=== PATIENT | male | born 2000 | race Caucasian/White ===

== ENCOUNTER 2024-07-10 14:48 | Emergency (ER) | payer BC, SELFPAY ==
[2024-07-10 14:54] VITALS: BP 120/78; PULSE 82; RESP 16; TEMP 36.4; O2SAT 97
--- NOTE | 2024-07-10 15:03 | PC.NURSE ---
Meal tray ordered for pt.
--- NOTE | 2024-07-10 15:08 | ED.PSYCH ---
HPI - Psych General Chief Complaint: Psychiatric Symptoms Stated Complaint: auditory hallucinations History of Present Illness HPI Narrative: 23-year-old male with history of schizophrenia presenting to the emergency department with EMS for concerns of medication noncompliance and auditory/visual hallucinations. Patient is noncooperative and verbally aggressive. Occasionally he gets selective mutism and will not answer my questions but occasionally will also nod his head yes or no. Patient will not talk to me or respond to me during my initial assessment but occasionally will verbalized with some of the nursing staff. Patient appears to be responding to internal stimuli making review of systems and interviewing limited. Related Data Allergies Allergy/AdvReac Type Severity Reaction Status Date / Time Unable to Assess Allergy Verified 07/10/24 16:48 Review of Systems Review of Systems: ROS unobtainable: Yes unobtainable due to medical condition [facility] Social History Social History Substance use type: unknown Exam Narrative: GENERAL: Not any acute distress, appears to be responding to internal stimuli, selectively mute but awake and occasionally nods yes or no and occasionally states words HEAD: [Normocephalic, atraumatic.] EYES: [PERRLA and EOMI.] ENT: Nares clear, no rhinorrhea or epistaxis. Mucous membranes moist. NECK: Supple. CHEST: [Clear to auscultation. No respiratory distress.] HEART: [Regular rate and rhythm]. No murmur heard. [Normal peripheral pulses.] ABDOMEN: [Soft, nondistended], [nontender], [No rigidity or guarding] EXTREMITIES: Normal range of motion. [No edema.] SKIN: Warm, dry, no rash. NEURO: [No focal deficits]. Awake and alert, Moving all extremities PSYCH: Negative symptoms and features in his mood and affect, selective mutism, appears to responding to internal stimuli Course Vital Signs Vital signs: Vital Signs Temperature 36.4 C 07/10/24 14:54 Pulse Rate 82 07/10/24 14:54 Respiratory Rate 16 07/10/24 14:54 Blood Pressure 120/78 07/10/24 14:54 Pulse Oximetry 97 07/10/24 14:54 Oxygen Delivery Room Air 07/10/24 14:54 Temperature 36.4 C 07/10/24 14:54 Pulse Rate 82 07/10/24 14:54 Respiratory Rate 16 07/10/24 14:54 Blood Pressure 120/78 07/10/24 14:54 Pulse Oximetry 97 07/10/24 14:54 Oxygen Delivery Room Air 07/10/24 14:54 MDM - Psych MDM Narrative Medical decision making narrative: 23-year-old male with history of schizophrenia presenting to the emergency room with EMS for reported auditory and visual hallucinations and decompensated psychosis. Patient apparently was verbally aggressive with EMS but presently cooperative. He is selectively being mute and not answering my questions but occasionally nodding yes or no and occasionally stating words. Has very convincing negative symptoms of schizophrenia on his examination. Normal vital signs. Psychiatric clearance laboratory studies will be ordered and orders for p.r.n. medications including Versed and Haldol intramuscular were given in case he needs them for agitation and noncompliance with treatment. Elopement precautions ordered. Workup shows no leukocytosis or anemia. Normal platelet count. Chemistry panel is unremarkable. Normal renal function, normal hepatic function, normal glucose. Normal TSH. Urine with no signs of infection. UDS positive for cannabinoids otherwise negative. Negative alcohol level. Negative COVID test. Patient is medically cleared for psychiatric evaluation and final disposition per their recommendations. Psychiatry has evaluated the patient and recommends placement. Patient has signed voluntary forms and will be placed for continued evaluation and treatment of his psychiatric disorder. Medical Records Attestation: I reviewed the patient's medical records. Lab Data Attestation: I reviewed the patient's lab results. 07/10/24 15:45 07/10/24 15:45 Labs: Lab Results 07/10/24 Range/Units 15:45 WBC 6.8 (4.5-10.0) K/mm3 RBC 5.00 (4.6-6.20) M/mm3 Hgb 14.2 (14.0-18.0) g/dL Hct 44.4 (42.0-52.0) % MCV 88.8 (80-100) fl MCH 28.4 (26-34) pg MCHC 32.0 (32-36) g/dl RDW 12.3 (11.5-14.5) % Plt Count 254 (150-375) k/mm3 MPV 10.4 (7.4-10.4) fl Immature Gran % (Auto) 0.3 (0-0.5) % Neut % (Auto) 59.7 (45.5-73.1) % Lymph % (Auto) 25.6 (18.3-44.2) % Meagher % (Auto) 10.1 H (2.6-8.5) % Eos % (Auto) 3.4 (0-4.4) % Baso % (Auto) 0.9 (0.2-1.2) % Lymph # (Auto) 1.74 (0.9-3.2) K/mm3 Meagher # (Auto) 0.7 H (0.1-0.6) K/mm3 Eos # (Auto) 0.2 (0-0.3) K/mm3 Baso # (Auto) 0.1 (0.0-0.1) K/mm3 Abs Immat Gran (auto) 0.02 (0.00-0.031) K/mm3 Absolute Neuts (auto) 4.1 (1.3-6.7) K/mm3 Absolute Nucleated RBC 0.000 (0.0-0.012) K/mm3 Nucleated RBC % 0.0 (0.0-0.2) % Sodium 139 (137-145) mmol/L Potassium 4.4 (3.4-5.0) mmol/L Chloride 104 (98-107) mmol/L Carbon Dioxide 28 (22-30) mmol/L Anion Gap 7 (4-12) mmol/L BUN 14 (9-20) mg/dL Creatinine 0.97 (0.7-1.3) mg/dL Estim Creat Clear Calc Not Reportable Estimated GFR > 60 (59 - ) Glucose 90 (65-110) mg/dL Calcium 9.6 (8.4-10.2) mg/dL Total Bilirubin 0.3 (0.2-1.3) mg/dL AST 34 (17-59) U/L ALT 25 (6-50) U/L Alkaline Phosphatase 76 (38-126) U/L Total Protein 8.0 (6.3-8.2) g/dL Albumin 4.5 (3.5-5.1) g/dL TSH (Reflex) 0.870 (0.465-4.68) uIU/mL Urine Color Yellow (Yellow) Urine Appearance Clear (Clear) Urine pH 5.5 (5.0-9.0) Ur Specific Preston 1.021 (1.001-1.035) Urine Protein Trace (Negative) mg/dL Urine Glucose (UA) Negative (Negative) mg/dL Urine Ketones Trace H (Negative) mg/dL Ur Blood (Man) Negative (Negative) Urine Nitrate Negative (Negative) Urine Bilirubin Negative (Negative) Urine Urobilinogen 0.2 (<2.0) mg/dL Add Ur Microanalysis Reviewed Leukocyte Esterase Rfl Negative (Negative) ZACH/UL Urine RBC 0-2 (0-2) /hpf Urine WBC 0-5 (0-3) /hpf Ur Squamous Epith Cells None seen (Few) /hpf Urine Bacteria None seen /hpf Urine Casts 11-20 Hyaline Casts Present (None) /lpf Urine Opiates Screen Negative (Negative) Urine Methadone Screen Negative (Negative) Ur Barbiturates Screen Negative (Negative) Ur Phencyclidine Scrn Negative (Negative) Ur Amphetamine Screen Negative (Negative) U Benzodiazepines Scrn Negative (Negative) Urine Cocaine Screen Negative (Negative) U Cannabinoids Screen Positive A (Negative) Ethyl Alcohol < 10 (<10) mg/dL SARS-CoV-2 RNA (RT-PCR) Negative (Negative) Discharge Plan Discharge Clinical Impression: Psychosis Patient Disposition: Psychiatric Hosp Condition: Stable Patient Language: Citizen Of [place] Follow-up/Referrals: UNKNOWN,DOCTOR [Primary Care Provider] -
--- OUTSIDE RECORDS SUMMARY | 2024-07-10 15:21 | XMS_ITS | Patient Health Record ---
Author Organization [facility] Address [address] [place] [address] Care Team Providers Care Profile Saw Setup Operator Name Role Phone Loraine Montiel Primary Care Provider [phone] Marga Alonso Unavailable Allergies No Known Allergies Results Component Value Reference Range Notes CBC With Differential/Platel et* (Not yet reviewed by provider) Interpretation: Performing Lab:[facility], [address] [place] [address], [place], Phone - [phone], Director - Nini Notes/Report: WBC 7.8 3.4-10.8 x10E3/uL RBC 5.60 4.14-5.80 x10E6/uL Hemoglobin 15.9 13.0-17.7 g/dL Hematocrit 48.5 37.5-51.0 % MCV 87 79-97 fL MCH 28.4 26.6-33.0 pg MCHC 32.8 31.5-35.7 g/dL RDW 12.7 11.6-15.4 % Platelets 249 150-450 x10E3/uL Neutrophils 68 Not Estab. % Lymphs 20 Not Estab. % Monocytes 9 Not Estab. % Eos 2 Not Estab. % Basos 1 Not Estab. % Neutrophils (Absolute) 5.3 1.4-7.0 x10E3/uL Lymphs (Absolute) 1.6 0.7-3.1 x10E3/uL Monocytes(Absolute) 0.7 0.1-0.9 x10E3/uL Eos (Absolute) 0.2 0.0-0.4 x10E3/uL Baso (Absolute) 0.1 0.0-0.2 x10E3/uL Immature Granulocytes 0 Not Estab. % Immature Grans (Abs) 0.0 0.0-0.1 x10E3/uL CMP 14 Comprehensive Metabol ic Panel* (Not yet reviewed by provider) Interpretation: Performing Lab:[facility] [address] [facility], Phone - [phone], Director - [facility] Notes/Report: Glucose 61 70-99 mg/dL BUN 15 6-20 mg/dL Creatinine 0.96 0.76-1.27 mg/dL eGFR 113 >59 mL/min/1.73 BUN/Creatinine Ratio 16 9-20 Sodium 141 134-144 mmol/L Potassium 4.4 3.5-5.2 mmol/L Chloride 103 96-106 mmol/L Carbon Dioxide, Total 21 20-29 mmol/L Calcium 9.7 8.7-10.2 mg/dL Protein, Total 7.6 6.0-8.5 g/dL Albumin 4.7 4.3-5.2 g/dL Globulin, Total 2.9 1.5-4.5 g/dL Bilirubin, Total 0.3 0.0-1.2 mg/dL Alkaline Phosphatase 96 44-121 IU/L AST (SGOT) 14 0-40 IU/L ALT (SGPT) 13 0-44 IU/L HIV Screen *HIV 1, 2 Ab, p24 Ag ([id number]) (Not yet reviewed by provider) Interpretation: Performing Lab:[facility] [address] [facility], Phone - [phone], Director - [facility] Notes/Report: HIV Ab/p24 Ag Screen Non Reactive Non Reactive HIV-1/HIV-2 antibodies and HIV-1 p24 antigen were NOT detected. There is no laboratory evidence of HIV infection. HIV Negative 12 Panel Urine Drug Screen Reviewed date:07/06/2024 11:59:35 AM Interpretation: Performing Lab: Notes/Report: THC pos SONIA neg MOP (OPI) neg AMP neg MET neg BAR neg BZO neg MDMA neg MTD neg OXY neg PCP neg BUP neg QuantiFERON-TB Gold Plus ([id number]) (Not yet reviewed by provider) Interpretation: Performing [facility] [address] [facility], Phone - [phone], Director - [facility] Notes/Report: QuantiFERON Incubation Incubation performed. QuantiFERON-TB Gold Plus Negative Negative No response to M tuberculosis antigens detected. Infection with M tuberculosis is unlikely, but high risk individuals should be considered for additional testing (ATS/IDSA/CDC Clinical Practice Guidelines, 2017). The reference range is an Antigen minus Nil result of <0.35 IU/mL. Chemiluminescence immunoassay methodology QuantiFERON Criteria QuantiFERON-TB Gold Plus is a qualitative indirect test for M tuberculosis infection (including disease) and is intended for use in conjunction with risk assessment, radiography, and other medical and diagnostic evaluations. The QuantiFERON-TB Gold Plus result is determined by subtracting the Nil value from either TB antigen (Ag) value. The Mitogen tube serves as a control for the test. QuantiFERON TB1 Ag Value 0.06 QuantiFERON TB2 Ag Value 0.06 QuantiFERON Nil Value 0.08 QuantiFERON Mitogen Value >10.00 Breathalyzer Reviewed date:07/06/2024 11:58:38 AM Interpretation:0.000 Performing Lab: Notes/Report: 0.000 TAYLOR 0.000 Reason For Referral No Information Medications Medication SIG (Take, Route, Fr equency, Duration) Notes Start Date End Date Status Melatonin 5 MG 1 tablet at bedtime as needed Orally Once a day for 30 days 07/06/2024 Ac tive Multi Vitamin - 1 tablet Orally Once a day for 30 days 07/06/2024 Active hydrOXYzine HCl 25 MG 1-2 capsules Orall y every 4 hours as needed for anxiety, agitation, or inability to sleep. Do not given within 4 hours of diphenhydramine for 5 days 07/06/2024 Active Social History Tobacco Use: Social History Observation Description Date Details (start date - stop date) Never Smoker NA - NA Sex Assigned At : Social History Observation Description Sex Assigned At Male PRAPARE Question Answer Notes Date Completed/Updated: 07/06/2024 What is your current housing situation? I have h ousing Are you worried about losing your housing? No What is the highest level of school that you have finished? Less than a high school degree What is your current work situation? Unemployed and seeking work In the past year, have you o r any family members you live with been unable to get any of the following when it was really needed? Check all that apply Phone Has lack of transportation k ept you from medical appointments, meetings, work or from getting things needed for daily living? No How often do you see or talk to people that you care about and feel close to? (For example: talking to friends on the phone, visiting friends or family, going to quaker or club meetings) Less than once a week How stressed are you? Stress is when someone feels tense, nervous, anxious, or can\t sleep at night because their mind is troubled A little bit In the past year have you sp ent more than 2 nights in a row in a half-way, jail, longterm center, or juvenile correctional facility? Yes What was your release date? 07/06/2024 Are you a refugee? I choose not to answer this q uestion What country are you from? I choose not to answe r this question Do you feel physically and e motionally safe where you currently live? No In the past year, have you b een afraid of your partner or ex-partner? No PRAPARE Score: 11 Enabling Services Provided? Yes Please specify Case Management Asse ssment First Visit Tobacco Control (Standard) Question Answer Notes Tobacco use: Nonsmoker Problems Problem Type SNOMED Code ICD Code Onset Dates Problem Status W/U Status Risk Notes Problem Adult general medical exam (Z00.) Active confirmed Vital Signs Heart Rate 89 /min 07/06/2024 Respiratory Rate 16 /min 07/06/2024 Blood pressure diastolic 70 mm Hg 07/06/2024 Oximetry 98 % 07/06/2024 Height 68 in 07/06/2024 Blood pressure systolic 128 mm Hg 07/06/2024 Weight 147.6 lbs 07/06/2024 BMI 22.44 kg/m2 07/06/2024 Encounters Encounter Location Date Provider Diagnosis [facility] [address] [place] [address] 07/06/2024 Marga Alonso [place] [address] [place] [address] 07/06/2024 Loraine Montiel Adult general medical exam Z00.00 Assessments Encounter Date Diagnosis (ICD Code) Assessment Notes Treatment Notes Treatment Clinical Notes Section Notes 07/06/2024 Adult general medical exam (ICD-10 - Z00.00) Admit to the Mental Health/Crisis Residential Unit and initiate standing/protocol orders: The following PRN medications may be self-administered by patients under the supervision of approved staff or administered by nursing staff: Ibuprofen 200mg, 2-4 tablets by mouth (with food) every 6 hours as needed for pain (unless on lithium). (NOTE: Ibuprofen and acetaminophen may be given together, but alternating is recommended for continuous pain relief. Guaifenesin 400 mg, 1 tablet by mouth every four hours as needed for cough and chest congestion (take with large glass of water). Loratadine 10 mg, 1 tablet by mouth daily as needed for allergies, watery itchy eyes, or sinus drainage. Throat Lozenges, up to 4 tablets by mouth every three to four hours as needed for sore throat. Antacid tablets, 1-2 tablets by mouth every one to two hours as needed for indigestion or heart burn. If the client prefers liquid, could use: Liquid Antacid : 1 ounce by mouth up to four times daily as needed for indigestion or heartburn Omeprazole 20mg, 1 capsule by mouth once daily for 14 days for frequent heartburn (frequent heartburn is more than 2 episodes per week). Do not exceed 14 days. Do not give to client already taking a proton-pump inhibitor: esomeprazole (Nexium), lansoprazole (Prevacid), pantoprazole (Protonix), rabeprazole (Aciphex), dexlansoprazole (Dexilant) Zofran ODT disintegrating (under the tongue) 4 mg, 1-2 tablets every 8 hours as needed for nausea/vomiting. Milk of Magnesia (MOM): 1 ounce (30 milliliters) by mouth every day as needed for constipation. OR Miralax: Stir and fully dissolve 17 grams (1 packet or 1 capful to measured line) in any 4 to 8 ounces of beverage then drink once daily for constipation. Do not use for more than 7 days. OR Docusate 100 mg, 1 capsule twice daily as needed for constipation Hydrocortisone 1% Cream, apply topically (to the skin) to the affected area up to three times daily as needed for itching or inflammation (avoid eyes and genitals). 2% Antifungal Cream, apply topically (to the skin) as directed as needed to affected areas for athlete's foot or jock itch. Triple Antibiotic Ointment, apply topically (to the skin) up to three times daily as needed for minor cuts and scrapes. Carmex or Chapstick, apply topically (to the skin) as needed for chapped lips and skin. Orajel, apply to affected areas as needed for mouth or tooth pain. Lubricating Eye Drops, instill 1-2 drops to the affected eye(s) as needed for dry/irritated eye(s). Hemorrhoid medications, apply to affected area according to directions as needed for hemorrhoid discomfort and itch. Nix (Permethrin 1%) cream 2 ounces, apply topically (to the skin) as directed as needed for head lice. Sunscreen 30 SPF, Apply to exposed skin prior to exposure to sun. The following PRN medications must be approved by nursing staff before self-administration by patients: Diphenhydramine 25 mg, 2 tablets by mouth every 4 hours as needed for allergic reaction or itchy rash. Caution: Do not use hydroxyzine within 4 hours of diphenhydramine and vice versa. Loperamide 2 mg capsules, may give two capsules by mouth for the initial dose, followed by one capsule up to 3 times a day as needed for diarrhea. Acetaminophen 500 mg, 1 - 2 tablets by mouth every six hours as needed for pain. (NOTE: Ibuprofen and acetaminophen may be given together, but alternating is recommended for continuous pain relief). Oxygen-May administer oxygen 2L/min via nasal cannula if O2 saturation is less than 92%, AND client complains of shortness of breath. Target O2 saturation is 94-98%. Caution: Remember too much oxygen can be detrimental to a client with COPD. Oxygen is a drug and should be delivered by trained staff only. Nurses may remove superficial splinters and sutures from skin lacerations. May apply gauze or bandages to any weeping wounds. Contact nursing if there is pus, a foul odor, increased pain/redness/swelli ng, or if soaking through bandages. 07/06/2024 Other Clinician met w ith client to assess needs for residential services. Clinician gathered information regarding historical presentation of mental health and substance use symptoms including withdrawal, HIV Risk assessment, psychiatric hospitalization history and presenting concern. Clinician conducted PHQ9 and CSSRS assessments as well as social drivers of health screening for the purposes of identifying additional service needs. Plan Of Treatment Future Test Test Name Order Date HIV Screen *HIV 1, 2 Ab, p24 Ag ([id number]) 07/06/2024 CBC With Differential/Platelet* 07/07/19 25 CMP 14 Comprehensive Metabolic Panel* QuantiFERON-TB Gold Plus ([id number]) 2024 Insurance Providers Payer Name Payer Address Payer Phone Subscriber Number Group Number Insured Name Patient Relationship to Insured Coverage Start Date Coverage End Date [address] [phone] [id number] Jake Silva Self - patient is the insured 5
--- OUTSIDE RECORDS SUMMARY | 2024-07-10 15:21 | XMS_ITS ---
Author Organization [facility] Address [address] [place] [address] Care Team Providers Care Conservation Science Officer Name Role Phone Loraine Montiel Primary Care Provider [phone] Marga Alonso Unavailable [phone] REASON FOR VISIT CRU aT Social History Tobacco Use: Social History Observation [...] phone, visiting friends or family, going to amish or club meetings) Less than once a week How stressed are you? Stress is when someone feels tense, nervous, anxious, or can\t sleep at night because their mind is troubled A little bit In the past year have you sp ent more than 2 nights in a row in a residential, long term, care home center, or juvenile correctional facility? Yes What [...] (Standard) Question Answer Notes Tobacco use: Nonsmoker Encounters Encounter Location Date Provider Diagnosis [facility] [address], [place] [address] 07/06/2024 Marga Alonso Assessments Encounter Date Diagnosis (ICD Code) Assessment Notes Treatment Notes Treatment Clinical Notes Section Notes 07/06/2024 Other Clinician met w ith client to assess needs for residential services. Clinician gathered information regarding historical presentation of mental health and substance use symptoms including withdrawal, HIV Risk assessment, psychiatric hospitalization history and presenting concern. Clinician conducted PHQ9 and CSSRS assessments as well as social drivers of health screening for the purposes of identifying additional service needs. Plan Of Treatment Treatment Notes Assessment Notes Other Clinician met with krystyna acosta to assess needs for residential services. Clinician gathered information regarding historical presentation of mental health and substance use symptoms including withdrawal, HIV Risk assessment, psychiatric hospitalization history and presenting concern. Clinician conducted PHQ9 and CSSRS assessments as well as social drivers of health screening for the purposes of identifying additional service needs. Progress Notes * Jake VELARDEDOB: 0 (23 yo M)Acc No.[id number]:07/06/2024 UNLOCKED PROGRESS NOTE Patient: Jake ANGULO Provider: Jose Alonso :2000 A ge:23 Y S ex:Male Date:07/06/2024 Address:[address] [place], [place] [id number] Pcp:Loraine Montiel Subjective: * Chief Complaints: * 1 . CRU aT. * HPI: D epression Screening: PHQ-9 L ittle interest or pleasure in doing things N ot at all, F eeling down, depressed, or hopeless N early every day, T rouble falling or staying asleep, or sleeping too much S everal days, F eeling tired or having little energy Several days, P oor appetite or overeating M ore than half the days, F eeling bad about yourself or that you are a failure, or have let yourself or your family down S everal days, Trouble concentrating on things, such as reading the newspaper or watching television S ever, M oving or speaking so slowly that other people could have noticed; or the opposite, being so fidgety or restless that you have been moving around a lot more than usual S everal ,?Thoughts that you would be better off or of hurting yourself in some way N ot at all, Total Score 1 0, I nterpretation M oderate Depression. I ntervention D epression Screening Findings P ositive, F ollow-Up for Depression P rachele is admitted to a [facility] unit where their mental health is monitored - unit nursing staff have access to this encounter note. S creening: [place] Suicide Severity Rating Scale (LF) D o you want to initiate with S creener form, I nterpretation: L ow Risk, 6 . Suicide Behavior Question: Have you ever done anything,started to do anything, or prepared to end your life? N o, 2. Suicidal Thoughts: Have you actually had any thoughts of killing yourself? N o, 1 . Wish to be : Have you wished you were or wished you could go to sleep and not wake up? N o. C SSRS Interpretation and Follow Up Plan: CSSRS Interpretation and Follow Up Plan C SSRS Screen documented using SF Y es, R isk Disposition from L ow - No Follow Up Plan Required, F ollow Up Plan N o Follow Up Plan required at this time., T imeframe of Screening T micheal.? P sychiatric Assessment - Current Symptoms: Primary concern today A dmitting today for MH Stabilization program unsure of goals at this point. O verview of Mental Health Symptoms M H dx - denies any at this time. H istory of Psychiatric Hospitalizations d enies at this time. H istory of Psychiatric and Behavioral Health Treatment D enies any past BH treatment at this time.? S ubstance Use: Current Use Patterns x . S ubstance of Choice x .?History of substance use D enies any substance use hx at this time. S moking: Denies W eed: Denies at this time A lcohol: Denies at this time. . H x of Withdrawal x . H IV Risk Assessment Screening: Sexual Risk Behaviors: 1 . Are you sexually active? (If no skip question 2) N o. H IV/AIDS/Hepatitis Risk Assessment 1 . Have you ever shared needles or equipment for injecting drugs, tattoos, or piercings with others? N o, 2 . Have you ever had unprotected sex with someone you think might be infected with an STI or HIV (such as someone who injected drugs, who was diagnoed with or treated for an STI or hepatitis, has had mulitiple sex partners, or who has exchanged sex for drugs or money)? N o, 3 . Have you ever had unprotected vaginal or anal intercourse with more than 1 sex partner? N o, 4 . Have you ever been diagnosed with or treated for an STI, hepatitis, or tuberculosis? N o, 5 . Have you ever had an unexplained fever or illness of unknown cause (not including the common cold)? N o, 6 . Have you ever been told that you have an infection related to a weak immune system ? N o, 7 . If YES to any of the above (including sexual risk behaviors), have you been tested in the past year for HIV/AIDS and/or Hepatitis C? L ow Risk: The patient did not answer yes to any of the screening questions. . Required for Residential Admits. a TBC For Mental Health Services: Who Is Your Primary Care Provider? D o You Have A PCP? N o Denies desire to see any at this time, D ate of last physical exam 0 -2024. D o You Have A Psychiatric Provider? D o You Have A Psychiatric Provider? N o Not interested at this time. D o You Have Any Other Professional Supports? D o You Have Any Other Professional Supports? Y es Denies any at this time. C onsent Forms Completed During Appointment C onsent Forms Completed N one Needed at this time. A ssessment of Social Determinants of Health::: Has A PRAPARE Been Completed In The Past Year? H as a PRAPARE Been Completed In The Past Year? Y es, W as It Completed Today Using [employer]? N o.? * Medical History: * Social History: S ocial Determinants: Subha KERN D ate Completed/Updated: 0 07/06/2024, W hat is your current housing situation? I have housing, A re you worried about losing your housing? N o, W hat is the highest level of school that you have finished? L ess than a high school degree, W hat is your current work situation? U nemployed and seeking work, I n the past year, have you or any family members you live with been unable to get any of the following when it was really needed? Check all that apply P oswaldo, H as lack of transportation kept you from medical appointments, meetings, work or from getting things needed for daily living? N o, H ow often do you see or talk to people that you care about and feel close to? (For example: talking to friends on the phone, visiting friends or family, going to amish or club meetings) L ess than once a week, H ow stressed are you? Stress is when someone feels tense, nervous, anxious, or can\t sleep at night because their mind is troubled A little bit, I n the past year have you spent more than 2 nights in a row in a residential, long term, care home center, or juvenile correctional facility? Y es, W hat was your release date? 0 07/06/2024, A re you a refugee? I choose not to answer this question, W hat country are you from? I choose not to answer this question, D o you feel physically and emotionally safe where you currently live? N o, I n the past year, have you been afraid of your partner or ex-partner? N o, P ERLIN Score: 1 1, E nabling Services Provided? Y es, P tatianna specify C ase Management Assessment First Visit. T obacco Use: T obacco Control (Standard) T obacco use: N onsmoker. Objective: * Vitals: * Examination: M ental Status Exam: ATTENTION AND CONCENTRATION x . APPEARANCE x . ATTITUDE AND BEHAVIOR x . EYE CONTACT x . AFFECT x . MOOD x . INSIGHT x . JUDGMENT x . Assessment: Plan: * Treatment: * Procedure Codes: 9 0791 PSYCH DIAGNOSTIC EVALUATION, Modifiers: AJ , T1016 Case management, CHS08 [facility] Service, CHS11 Insurance Application Assistance, CHS12 Housing Assistance, CHS13 Referring to Fruit Grading Supervisor * * Electronic signature of Nona chanel Celeste on 07/10/2024 at 03:21 PM CDT Sign off status: Pending * Provider: Jose Alonso Date: 0 07/06/2024 Generated for Jose L mejia/Zita/Shasta on: 0 07/10/2024 03:21 PM CDT History and Physical Notes * HPI (History of Present Illness) Category Sub-Category Detail Notes Category Not es Depression Screening PHQ-9 Little inte rest or pleasure in doing things: Not at all Feeling down, depressed, or hopeless: Ne megan every day Trouble falling or staying asleep, or sl eeping too much: Several days Feeling tired or having little energy: S everal days Poor appetite or overeating: More than h iggy the days Feeling bad about yourself o r that you are a failure, or have let yourself or your family down: Several days Trouble concentrating on thi ngs, such as reading the newspaper or watching television: Several days Moving or speaking so slowly that other people could have noticed; or the opposite, being so fidgety or restless that you have been moving around a lot more than usual: Several days Thoughts that you would be b reid off or of hurting yourself in some way: Not at all Total Score: 10 Interpretation: Moderate Depression Intervention Depression Screening Findings: P ositive Follow-Up for Depression: Reji ashton is admitted to a [facility] unit where their mental health is monitored - unit nursing staff have access to this encounter note Psychiatric Assessment - Current Symptoms Primary concern today Admitting today for MH Stabilization program unsure of goals at this point Overview of Mental Health Symptoms MH dx - denies any at this time History of Psychiatric Hospitalizations denies at this time History of Psychiatric and B ehavioral Health Treatment Denies any past treatment at this boby e Substance Use History of substance use Denies any substance use hx at this time. Smoking: Denies Swatara: Denies at this time Alcohol: Denies at this time. Hx of Withdrawal x Substance of Choice x Current Use Patterns x Screening [place] Suicide Sev erity Rating Scale (LF) Do you want to initiate with: Screener form Interpretation:: Low Risk 6. Suicide Behavior Question: Have you ever done anything,started to do anything, or prepared to end your life?: No 2. Suicidal Thoughts: Have you actually had any thoughts of killing yourself?: No 1. Wish to be : Have you wished you were or wished you could go to sleep and not wake up?: No HIV Risk Assessment Screening Sexual Risk Behaviors: 1. Are you sexually active? (If no skip question 2): No Required for Residential Admits HIV/AIDS/Hepatitis Risk Assessment 1. Huang ve you ever shared needles or equipment for injecting drugs, tattoos, or piercings with others?: No 2. Have you ever had unprote cted sex with someone you think might be infected with an STI or HIV (such as someone who injected drugs, who was diagnoed with or treated for an STI or hepatitis, has had mulitiple sex partners, or who has exchanged sex for drugs or money)?: No 3. Have you ever had unprote cted vaginal or anal intercourse with more than 1 sex partner?: No 4. Have you ever been diagno sed with or treated for an STI, hepatitis, or tuberculosis?: No 5. Have you ever had an unex plained fever or illness of unknown cause (not including the common cold)?: No 6. Have you ever been told t hat you have an infection related to a weak immune system ?: No 7. If YES to any of the abov e (including sexual risk behaviors), have you been tested in the past year for HIV/AIDS and/or Hepatitis C?: Low Risk: The patient did not answer yes to any of the screening questions. Assessment of Social Determinants of Health:: Has A PRAPARE Been Completed In The Past Year? Has a PRAPARE Been Completed In The Past Year?: Yes Was It Completed Today Using [employer]?: No aT For Mental Health Services Who Is Your Primary Care Provider? Do You Have A PCP?: No Denies desire to see any at this time Date of last physical exam: Do You Have A Psychiatric Provider? Do You Have A Psychiatric Provider?: No Not interested at this time Do You Have Any Other Professional Supports? Do You Have Any Other Professional Supports?: Yes Denies any at this time Consent Forms Completed During Appointment Consent Forms Completed: None Needed at this time CSSRS Interpretation and Follow Up Plan CSSRS Interpretation and Follow Up Plan CSSRS Screen documented using SF: Yes Risk Disposition from SF: Low - No Follo w Up Plan Required Follow Up Plan: No Follow Up Plan requir ed at this time. Timeframe of Screening: Today Examination Category Sub-Category Detail Notes Category Not es Mental Status Exam ATTENTION AND CONCENTRATION x APPEARANCE x ATTITUDE AND BEHAVIOR x EYE CONTACT x AFFECT x MOOD x INSIGHT x JUDGMENT x
[2024-07-10] MEDS: HALOPERIDOL LACTATE 5 MG/ML VIAL IM (15:30)
[2024-07-10] MEDS: MIDAZOLAM HCL (*CRX) 2 MG/2 ML VIAL IM (15:30)
[2024-07-10 16:01] LABS: Basophils Absolute Auto 0.1 K/mm3 (0.0-0.1); Basophils Percent Auto 0.9 % (0.2-1.2); Eosinophils Absolute Auto 0.2 K/mm3 (0-0.3); Eosinophils Percent Auto 3.4 % (0-4.4); Hematocrit 44.4 % (42.0-52.0); Hemoglobin 14.2 g/dL (14.0-18.0); Immature Granulocyte Absolute 0.02 K/mm3 (0.00-0.031); Immature Granulocyte Percent A 0.3 % (0-0.5); Lymphocytes Absolute Auto 1.74 K/mm3 (0.9-3.2); Lymphocytes Percent Auto 25.6 % (18.3-44.2); Mean Corpuscular Hemoglobin 28.4 pg (26-34); Mean Corpuscular Volume 88.8 fl (80-100); Mean Platelet Volume 10.4 fl (7.4-10.4); Monocytes Absolute Auto 0.7 K/mm3 (0.1-0.6); Monocytes Percent Auto 10.1 % (2.6-8.5); Neutrophils Absolute Auto 4.1 K/mm3 (1.3-6.7); Neutrophils Percent Auto 59.7 % (45.5-73.1); Platelet Count Result 254 k/mm3 (150-375); Red Cell Distribution Width 12.3 % (11.5-14.5); White Blood Count 6.8 K/mm3 (4.5-10.0)
[2024-07-10 16:12] LABS: Alanine Aminotransferase 25 U/L (6-50); Albumin Level 4.5 g/dL (3.5-5.1); Alkaline Phosphatase 76 U/L (38-126); Anion Gap 7 mmol/L (4-12); Aspartate Amino Transferase 34 U/L (17-59); Bilirubin,Total 0.3 mg/dL (0.2-1.3); Blood Urea Nitrogen 14 mg/dL (9-20); Calcium 9.6 mg/dL (8.4-10.2); Carbon Dioxide 28 mmol/L (22-30); Chloride 104 mmol/L (98-107); Estimated Glomerular Filt Rate > 60; Ethanol < 10 mg/dL (<10); Glucose 90 mg/dL (65-110); Potassium 4.4 mmol/L (3.4-5.0); Sodium 139 mmol/L (137-145)
[2024-07-10] MEDS: ACETAMINOPHEN 500 MG TABLET 1000 MG PO (16:13)
[2024-07-10 16:16] LABS: Add Urine Microscopic? YES; Appearance Urine Clear (Clear); Bacteria Urine None Seen /hpf; Bilirubin Urine Negative (Negative); Blood Urine Negative (Negative); Color Urine Yellow (Yellow); Glucose Urine UA Negative (Negative); Hyaline Casts Urine Present /lpf; Ketones Urine Trace mg/dL (Negative); Leukocyte Esterase Ur Negative LEU/UL (Negative); Need Manual Microscopic Reviewed; Nitrate Urine Negative (Negative); Protein Urine Trace mg/dL (Negative); RBC Urine 0-2 /hpf (0-2); Specific Grav Ur 1.021 (1.001-1.035); Squamous Epithelial Cell Urine None Seen /hpf (Few); Urobilinogen Urine 0.2 mg/dL (<2.0); WBC Urine 0-5 /hpf (0-3); pH Urine 5.5 (5.0-9.0)
[2024-07-10 16:23] LABS: Amphetamine Screen Urine Negative (Negative); Barbiturate Screen Urine Negative (Negative); Benzodiazepines Screen Urine Negative (Negative); Cannabinoid Screen Urine Positive (Negative); Cocaine Screen Urine Negative (Negative); Methadone Screen Urine Negative (Negative); Opiate Screen Urine Negative (Negative); Phencyclidine Screen Urine Negative (Negative)
[2024-07-10 16:38] LABS: SARS-CoV-2 RNA PCR Negative (Negative)
--- NOTE | 2024-07-10 16:40 | PC.NURSE ---
Pt seen exiting ER ambulance bay with steady gait by this RN. This RN followed pt outside and asked pt where he was going. Pt states for a walk. This RN educated pt on having to stay in his room. Pt then complained of headache, this RN received verbal order for 1,000mg Tylenol PO for pts headache. Pt given soda, Tylenol and a warm blanket. Pt resting comfortably in ED RM 15.
[2024-07-10 19:37] VITALS: BP 116/82; PULSE 76; RESP 15; TEMP 36.7; O2SAT 99
--- NOTE | 2024-07-10 20:23 | PC.NURSE ---
This RN spoke with Krysten at [facility] and was informed the provider is declining admission. The provider states that they recommend outpatient.
[2024-07-11 08:07] VITALS: BP 125/82; PULSE 71; RESP 17; O2SAT 97
== END 2024-07-11 11:16 ==
PROVIDERS: Emergency Provider Student in an Organized Health Care Education/Training Program
DX: F29 Unspecified psychosis not due to a substance or known physiological condition (principal); F20.9 Schizophrenia, unspecified; Z11.52 Encounter for screening for COVID-19
CPT/HCPCS: 36415; 80053; 80307; 81001; 82077; 84443; 85025; 87635; 96372; 99285; A9270; J1630; J2250